=== PATIENT | female | born 1955 | race Caucasian/White ===

== ENCOUNTER → 2021-06-04 | Day surgery (SDC) | payer MEDICARE ==
[~2021-06-04] VITALS: Ht 162.6 cm; Wt 81.6 kg
[~2021-06-04] MED LIST: ALLOPURINOL 30300 MG PO; ASPIRIN EC81 MG PO; COREG25 MG PO; DICYCLOMINE HCL20 MG PO; GLUCOTROL XL5 MG PO; K-TAB ER10 MEQ PO; LASIX80 MG PO; LIPITOR20 MG PO; MAXIMUM DAILY1 EAC1 PO; METFORMIN HCL500 MG PO; METOLAZONE2.5 MG PO; VENTOLIN HFA IN18 GM INH; ZESTRIL40 MG PO
[2021-06-04 10:59] LABS: HGB 10.4 g/dl (12.5-16.0); MCHC 30.6 g/dL (32.0-36.0); MCV 94.7 fL (78.0-100.0); MPV 9.9 fL (6.0-9.5); RBC 3.59 M/uL (4.20-5.40); RDW 16.1 % (11.5-14.0); WBC 9.3 K/uL (4.0-10.5)
[2021-06-04 11:31] LABS: ALBUMIN 3.5 g/dL (3.4-5.0); BILIRUBIN - TOTAL 0.4 mg/dL (0.2-1.0); CREATININE 1.08 mg/dL (0.51-0.95); GLOBULIN (CALCULATION) 3.6 g/dL; POTASSIUM 4.3 mmol/L (3.5-5.1); TOTAL PROTEIN 7.1 g/dL (6.4-8.2)
== END | disposition home or self-care (01) ==
LOC: FAS 08:30
PROVIDERS: Surgery
DX: K59.1 Functional diarrhea (principal); D12.6 Benign neoplasm of colon, unspecified; K57.30 Diverticulosis of large intestine without perforation or abscess without bleeding; K63.89 Other specified diseases of intestine; R14.0 Abdominal distension (gaseous); R15.2 Fecal urgency; E11.22 Type 2 diabetes mellitus with diabetic chronic kidney disease; I12.9 Hypertensive chronic kidney disease with stage 1 through stage 4 chronic kidney disease, or unspecified chronic kidney disease; N18.9 Chronic kidney disease, unspecified; F17.210 Nicotine dependence, cigarettes, uncomplicated; Z80.0 Family history of malignant neoplasm of digestive organs; Z79.82 Long term (current) use of aspirin
CPT/HCPCS: 36415; 80053; J2704; J7120